=== PATIENT | male | born 1985 | race African-American/Black ===

== ENCOUNTER 2017-02-08 00:55 | Emergency (ER) | payer SELFPAY ==
[~2017-02-08] VITALS: Ht 175.3 cm; Wt 74.8 kg
[~2017-02-08 00:55] MED LIST: ALBU8.5H6 IH
[2017-02-08 01:04] VITALS: BP 158/97
--- NOTE | 2017-02-08 02:07 | PHYS DOC ---
Past Medical History Past Medical History: Asthma Additional Past Medical Histor: "BACK PROBLEMS" "SPINAL STENOSIS" Past Surgical History: No Surgical History Alcohol Use: Occasionally Drug Use: Marijuana Adult General Chief Complaint Chief Complaint: HAND PROBLEM HPI HPI Patient is a 31 year old male who presents with pain and swelling around the fingernail. One day history of painful swelling around the fingernail of the right long finger. No fevers or vomiting. Review of Systems Review of Systems Constitutional: Denies fever or chills HENT: Denies nasal congestion Respiratory: Denies cough Cardiovascular: Denies chest pain GI: Denies nausea, vomiting Musculoskeletal: Reports finger pain Integument: Denies rash Neurologic: Denies headache Current Medications Current Medications Current Medications Medications (Trade) Dose Ordered Sig/Graham Start Time Stop Time Status Last Admin Dose Admin Ibuprofen (Motrin) 600 mg 1X ONCE 02/08/17 02:15 02/08/17 02:16 DC 02/08/17 02:25 600 MG Allergies Allergies Allergies Coded Allergies Type Severity Reaction Last Updated Verified No Known Drug Allergies 01/18/14 No Physical Exam Physical Exam Constitutional: Well developed, well nourished, no acute distress, non-toxic appearance. HENT: Normocephalic, atraumatic Eyes: conjunctiva normal, no discharge. Cardiovascular: no edema. Lungs & Thorax: no respiratory distress. Abdomen: nondistended. Skin: Warm, dry, Extremities: right long finger paronychia with minimal erythema or warmth. no felon. Neurologic: Alert and oriented X 3 Current Patient Data Vital Signs Vital Signs Date Time Temp Pulse Resp B/P Pulse Ox O2 Delivery O2 Flow Rate FiO2 02/08/17 01:04 98.5 79 18 98 Room Air 98.5 EKG EKG [] Radiology/Procedures Radiology/Procedures [] Course & Med Decision Making Course & Med Decision Making Pertinent Labs and Imaging studies reviewed. (See chart for details) Patient presents with paronychia. Incision & drainage using 11 blade scalpel with expression of small amount of purulent bloody fluid. The patient experienced significant relief of pain. No cellulitis. Recommend rest, soak in warm water or take tylenol or ibuprofen if any ongoing pain. Return for fever, spreading warmth/erythema/swelling, any otherwise worsening condition. Discharged home in stable & improved condition. [] Dragon Disclaimer Dragon Disclaimer This electronic medical record was generated, in whole or in part, using a voice recognition dictation system. Departure Departure Impression: Primary Impression: Paronychia Disposition: 01 HOME, SELF-CARE Condition: STABLE Referrals: NO PCP (PCP) NEIL ESTEBAN MD Patient Instructions: Paronychia, [id number] Additional Instructions: You were seen in the emergency department today for infection around your fingernail. It was drained here. It should get better on its own. Please soak in warm water for comfort, take ibuprofen for pain. Follow-up as needed with Dr. Esteban in the primary care clinic. Return to the emergency department for high fever, spreading redness, warmth, swelling, any otherwise worsening condition. ANAMARIA GUILLEN MD Feb 08, 2017 02:07
[2017-02-08] MEDS ORDERED: IBUPROFEN 600 MG TABLET. PO ONE (02:15)
== END 2017-02-08 02:30 | disposition home or self-care (01) ==
LOC: ER 00:55
DX: L03.011 Cellulitis of right finger (principal); J45.909 Unspecified asthma, uncomplicated; F12.10 Cannabis abuse, uncomplicated
CPT/HCPCS: 10060; 99283-25

== ENCOUNTER 2017-07-06 16:07 | Emergency (ER) | payer SELFPAY ==
[~2017-07-06] VITALS: Ht 182.9 cm; Wt 72.6 kg
[2017-07-06 16:20] VITALS: BP 147/79
--- NOTE | 2017-07-06 16:38 | PHYS DOC ---
Past Medical History Past Medical History: Asthma Additional Past Medical Histor: "BACK PROBLEMS" "SPINAL STENOSIS" Past Surgical History: No Surgical History Alcohol Use: Occasionally Drug Use: Marijuana Adult General Chief Complaint Chief Complaint: FINGER INJURY HPI HPI Patient is a 31 year old male presents to the emergency department stating that he has an infected finger on the left hand. He states that he's had this for a few days today as been increasingly painful. He states that he was seen at [facility] in [place] today and was prescribed some antibiotics in which she has not filled yet. He has not taken anything for pain and discomfort. He states that he did so consult [facility]. He denies any fever , chills or any nausea vomiting. He also states they did try to drain the finger with no success. Patient is unsure when his last tetanus immunization occurred Review of Systems Review of Systems Constitutional: Denies fever or chills [] Eyes: Denies change in visual acuity, redness, or eye pain [] HENT: Denies nasal congestion or sore throat [] Respiratory: Denies cough or shortness of breath [] Cardiovascular: No additional information not addressed in HPI [] GI: Denies abdominal pain, nausea, vomiting, bloody stools or diarrhea [] : Denies dysuria or hematuria [] Musculoskeletal: Denies back pain or joint pain [] Integument: Denies rash or skin lesions Left middle finger with redness noted around the cuticle area. Neurologic: Denies headache, focal weakness or sensory changes [] Endocrine: Denies polyuria or polydipsia [] Allergies Allergies Allergies Coded Allergies Type Severity Reaction Last Updated Verified No Known Drug Allergies 01/18/14 No Physical Exam Physical Exam Constitutional: Well developed, well nourished, no acute distress, non-toxic appearance. [] HENT: Normocephalic, atraumatic, bilateral external ears normal, oropharynx moist, no oral exudates, nose normal. [] Eyes: PERRLA, EOMI, conjunctiva normal, no discharge. [] Neck: Normal range of motion, no tenderness, supple, no stridor. [] Cardiovascular:Heart rate regular rhythm Lungs & Thorax: No respiratory distress noted Skin: Warm, dry, no erythema, no rash. Patient with redness noted around the third finger cuticle area no drainage or discharge noted from the site. The area appears very fluctuant however it only appears to be red. Back: No tenderness Extremities: No tenderness, no cyanosis, no clubbing, ROM intact, no edema. [] Neurologic: Alert and oriented X 3, normal motor function, normal sensory function, no focal deficits noted. [] Psychologic: Affect normal, judgement normal, mood normal. [] EKG EKG [] Radiology/Procedures Radiology/Procedures [] Course & Med Decision Making Course & Med Decision Making Pertinent Labs and Imaging studies reviewed. (See chart for details) Patient will be discharged home with recommendations to obtain his prescription of antibiotics. Recommended Tylenol and ibuprofen for pain and discomfort. Recommended warm Epsom salt soaks 5 times a day. Also recommended Tylenol and ibuprofen for pain and discomfort elevation as much as possible. Patient will be discharged home in stable condition signs and symptoms to return back to emergency department as been provided. Patient agrees with discharge instructions treatment regimens and follow-up recommendations. All questions and concerns been answered at patient's bedside. He was provided with ibuprofen here in the emergency department as well as updated with his tetanus immunization. [] Dragon Disclaimer Dragon Disclaimer This electronic medical record was generated, in whole or in part, using a voice recognition dictation system. Departure Departure Impression: Primary Impression: Paronychia Disposition: 01 HOME, SELF-CARE Condition: STABLE Referrals: NO PCP (PCP) Patient Instructions: Paronychia, [id number] Additional Instructions: Activity as tolerated. Take the antibiotics if he attends prescribed at [facility]. Tylenol and ibuprofen for pain and discomfort. Elevation as much as possible. Warm Epsom salt soaks 4-5 times daily. Follow-up with the primary care physician next 3-5 days. Return back to emergency prior signs symptoms of become worse. GIANNA GAO [employer]LE [employer]OOF[employer] Jul 06, 2017 16:38
[2017-07-06] MEDS ORDERED: DIPHTH,PERTUSS(ACELL),TET TOX 0.5 ML DISP.SYRIN. VAX IM ONE (16:45)
[2017-07-06] MEDS ORDERED: IBUPROFEN 800 MG TABLET. PO ONE (16:45)
== END 2017-07-06 16:42 | disposition home or self-care (01) ==
LOC: ER 16:07
DX: L03.012 Cellulitis of left finger (principal); J45.909 Unspecified asthma, uncomplicated
CPT/HCPCS: 90471; 90715; 99283-25